=== PATIENT | male | born 1965 | race Caucasian/White ===

== ENCOUNTER 2016-11-20 16:27 | Emergency (ER) | payer OTHER ==
[~2016-11-20] VITALS: Ht 182.9 cm; Wt 109.6 kg
[~2016-11-20 16:27] MED LIST: PRDUNK; ULT/50 PO
[2016-11-20 16:28] VITALS: TEMP 37; Ht 182.9 cm; Wt 109.6 kg
[2016-11-20] MEDS ORDERED: OXYMETAZOLINE HCL 0.05% NA SPR 15 ML BTL ONE (17:27)
[2016-11-20 17:54] VITALS: BP 149/94; PULSE 58; O2SAT 96
[2016-11-20] MEDS ORDERED: SIMV20TA2 PO (23:27)
[2016-11-20] MEDS ORDERED: ALLO100T PO (23:28)
--- NOTE | 2016-11-20 23:49 | EMERGENCY ROOM VISIT NOTE ---
History First contact with patient: 17:11 Chief Complaint: NOSE BLEED (MINOR) Stated Complaint: BLOODY NOSE SINCE 1AM History of Present Illness The patient is a 51 year old male who presents to the Emergency Room with complaints of intermittent epistaxis for the past 2-3 days. The patient's symptoms are primarily from the right nares. He does not have a history of injury or trauma. He is not on blood thinners. He states that he will have episodes that will last 10-20 minutes, but they will resolve with pressure or with placing tissue in his nose. The patient's concern is that his symptoms have not resolved. He has started to use a humidifier in his bedroom, as his symptoms seem to be worse at night. The patient does not have other complaints and rates his current discomfort a 1/10. Review of Systems More than 10 systems were reviewed and otherwise negative with the exception of history of present illness. Past Medical/Surgical History No chronic medical disease Family History No pertinent family history Social History Smoking Status: Never Smoker Alcohol Use: none Current/Historical Medications Scheduled Allopurinol (Zyloprim), 100 MG PO DAILY Simvastatin (Zocor), 20 MG PO QPM Allergies Coded Allergies: No Known Allergies (Unverified , 01/31/12) Physical Exam Vital Signs Date Time Temp Pulse Resp B/P Pulse Ox O2 Delivery O2 Flow Rate FiO2 11/20/16 17:54 58 15 149/94 96 11/20/16 16:28 37.0 72 18 135/91 97 Room Air Pain Rating (0-10): 0 Physical Exam VITALS: Vitals are noted on the nurse's note and reviewed by myself. Vital signs stable. GENERAL: Well-developed, well-nourished, white male, who is in no acute distress and resting comfortably. Patient is cooperative with the examination. HEAD: Normocephalic atraumatic. NOSE: Patent without active bleeding. There is a small amount of blood along the medial anterior septum on the right MOUTH: Mucous membranes moist. Tonsils are not enlarged. Pharynx without erythema, blood, or exudate. Uvula midline. Airway patent. NECK: Supple without nuchal rigidity. No lymphadenopathy. No thyromegaly. Cervical spine is nontender. HEART: Regular rate and rhythm without murmurs gallops or rubs. LUNGS: Clear to auscultation bilaterally without wheezes, rales or rhonchi. No retractions or accessory muscle use. Medical Decision & Procedures Medications Administered Medications (Trade) Dose Ordered Sig/Richa Route Start Time Stop Time Status Last Admin Dose Admin Oxymetazoline HCl (Afrin 0.05% Nasal [place]) 75 sprays STK-MED ONCE .ROUTE 11/20/16 17:27 11/20/16 17:29 DC 11/20/16 17:27 75 SPRAYS ED Course Physical exam and history were performed. Nursing notes and EMR were reviewed. Patient appears to have had intermittent epistaxis over the past few days. On presentation to the department he does not have active bleeding. He is not on blood thinners and he is not hypertensive. I discussed options of care with the patient, and will provide him Afrin to use if needed home. The patient was also provided a nasal clamp and education on how to treat nosebleeds at home. If the patient has persistent bleeding greater than 30 minutes he is to return to the ER and we will place nasal packing. This does not appear necessary at this time. I also asked him to use [id number] saline sprays. He was provided information for ENT. The patient was otherwise invited back to the ER with any new, worsening, or concerning symptoms. The chart was completed utilizing [employer] Speech Voice Recognition Software. Grammatical errors, random word insertions, pronoun errors, and incomplete sentences are an occasional consequence of this system due to software limitations, ambient noise, and hardware issues. Any formal questions or concerns about the content, text, or information contained within the body of this dictation should be directly addressed to the provider for clarification. . Medical Decision Differential diagnosis: Etiologies such as anterior epistaxis, coagulopathy, traumatic injury, fracture , septal hematoma, posterior epistaxis as well as other pathologies were entertained. Impression Primary Impression: Epistaxis Departure Information Dispostion Home / Self-Care Condition GOOD Forms HOME CARE DOCUMENTATION FORM, IMPORTANT VISIT INFORMATION Patient Instructions My [employer] Additional Instructions Avoid scratching, rubbing, picking, or blowing your nose. The spray drier operator helper your nasal passages the more likely they are to bleed. The following two products are available [id number] at most drug stores/pharmacies. [place] nasal spray or similar generic saline spray to keep the nose moist 3 to 4 times a day. Apply Pingree gel 2-3 times daily to the nostrils to keep them moist. If bleeding recurs apply direct pressure for an uninterrupted 20 minutes. On and off pressure is much less effective because it will disturb the clots that are forming. If the bleeding is still a problem after 20 minutes or is so heavy despite the pressure return to the emergency department. Continue current medications. For ENT(Usry-Fxkh-Gztuve) follow up call Dr. Benoit's office at [phone] for an appointment this week. Tell the secretary office clerk you were referred from the ER. Follow-up with your primary care physician in 2 to 3 days for a recheck of your current condition.
== END 2016-11-20 17:56 | disposition home or self-care (01) ==
LOC: C.EDB 16:29 → C.EDD 17:56
DX: R04.0 Epistaxis (principal); Z79.899 Other long term (current) drug therapy